=== PATIENT | female | born 1960 | race Caucasian/White ===

== ENCOUNTER 2018-01-18 23:15 | Emergency (ER) | payer OTHER ==
[~2018-01-18] VITALS: Ht 149.9 cm; Wt 79.4 kg
[~2018-01-18 23:15] MED LIST: ASA325 M1 PO; COREG CR10 MG PO; DESPEC-DM TABL1 EACH PO; DOLOGESIC CAPSU1 CAP PO; MEDROL4 MG PO; SYNTHROID50 MCG PO; TUSSIONEX PENNKI5 ML PO; VASOTEC5 MG PO; XOPENEX1.25 MG/0. IH; ZITHROMAX500 MG PO; ZOCOR20 MG PO; [UNRECOGNIZED DRUG - OTHER]
[2018-01-18] MEDS ORDERED: BRILINTA90 MG (23:42)
[2018-01-18] MEDS ORDERED: ISONIAZID300 MG (23:42)
[2018-01-19] MEDS ORDERED: TRAMADOL HCL50 MG PO (03:02)
== END 2018-01-19 03:05 | disposition home or self-care (01) ==
LOC: ER 23:15
DX: N93.8 Other specified abnormal uterine and vaginal bleeding (principal)

== ENCOUNTER 2018-12-10 04:18 | Emergency (ER) | payer OTHER ==
[~2018-12-10] VITALS: Ht 149.9 cm; Wt 78.5 kg
[~2018-12-10 04:18] MED LIST changes: +BRILINTA90 MG; +ISONIAZID300 MG; +TRAMADOL HCL50 MG PO
[2018-12-10] MEDS ORDERED: ASA81 MG PO (04:29)
[2018-12-10] MEDS ORDERED: SYNTHROID88 MCG PO (04:29)
[2018-12-10] MEDS ORDERED: MEDROLPACK PO (07:49)
== END 2018-12-10 08:03 | disposition home or self-care (01) ==
LOC: ER 04:18
DX: J45.901 Unspecified asthma with (acute) exacerbation (principal)

== ENCOUNTER 2019-06-17 11:50 | Emergency (ER) | payer OTHER ==
[~2019-06-17] VITALS: Ht 149.9 cm; Wt 80.3 kg
[~2019-06-17 11:50] MED LIST changes: +ASA81 MG PO; +MEDROLPACK PO; +SYNTHROID88 MCG PO
[2019-06-17] MEDS ORDERED: TOPROL XL50 M1 (12:18)
[2019-06-17] MEDS ORDERED: LOSARTAN POTASS25 MG (12:18)
[2019-06-17] MEDS ORDERED: ZOCOR20 MG (12:19)
== END 2019-06-17 14:01 | disposition home or self-care (01) ==
LOC: ER 11:50
DX: J01.80 Other acute sinusitis (principal)

== ENCOUNTER 2021-10-28 08:36 | Outpatient (CLI) | payer OTHER ==
[~2021-10-28 08:36] MED LIST changes: +LOSARTAN POTASS25 MG; +TOPROL XL50 M1; +ZOCOR20 MG
== END 2021-10-28 08:51 | disposition home or self-care (01) ==
LOC: SONOGRAMA 08:36
PROVIDERS: ATTEND Obstetrics & Gynecology Gynecology
DX: D25.0 Submucous leiomyoma of uterus (principal); N84.0 Polyp of corpus uteri; R93.89 Abnormal findings on diagnostic imaging of other specified body structures